=== PATIENT | male | born 1950 | race Caucasian/White ===

== ENCOUNTER → 2016-09-02 | Outpatient (CLI) | payer OTHER | LOC: MRI 12:26 | DX: M54.5 Low back pain (principal); R53.1 Weakness; M54.16 Radiculopathy, lumbar region; M25.78 Osteophyte, vertebrae; M99.73 Connective tissue and disc stenosis of intervertebral foramina of lumbar region | CPT/HCPCS: 36415; 72158; 82565; 84520; A9577 ==